=== PATIENT | male | born 1990 | race Caucasian/White ===

== ENCOUNTER 2019-05-05 14:35 | Emergency (ER) | payer OTHER ==
[2019-05-05 16:22] VITALS: BP 116/70
--- NOTE | 2019-05-05 16:49 | UC ---
General HPI - HPI Summary HPI Summary: L knee bent inward while on a trampoline. occured just [employer]. c/o pain to inner knee. limping, unable to walk. - History of Current Complaint Chief Complaint: UCLowerExtremity Stated Complaint: LT KNEE INJURY Time Seen by Provider: 05/05/19 16:36 Hx Obtained From: Patient Onset/Duration: Sudden Onset Timing: Constant Pain Intensity: 5 - Allergy/Home Medications Allergies/Adverse Reactions: Allergies Allergy/AdvReac Type Severity Reaction Status Date / Time amoxicillin Allergy Difficulty Verified 05/05/19 16:22 Breathing PMH/Surg Hx/FS Hx/Imm Hx Previously Healthy: Yes - Surgical History Surgical History: None Surgery Procedure, Year, and Place: shoulder - Family History Known Family History: Positive: Non-Contributory - Social History Occupation: Employed Full-time Alcohol Use: Occasionally Substance Use Type: None Smoking Status (MU): Never Smoked Tobacco Review of Systems All Other Systems Reviewed And Are Negative: No Constitutional: Negative: Fever Musculoskeletal: Positive: Edema - L knee. Negative: Decreased ROM Neurological: Negative: Weakness, Paresthesia, Numbness Physical Exam Triage Information Reviewed: Yes Appearance: Well-Appearing Vital Signs: Initial Vital Signs Temp 97.4 F 05/05/19 16:17 Pulse 52 05/05/19 16:17 Resp 16 05/05/19 16:17 BP 116/70 05/05/19 16:17 Pulse Ox 99 05/05/19 16:17 Vital Signs Reviewed: Yes Eyes: Positive: Conjunctiva Clear Respiratory: Positive: No respiratory distress Cardiovascular: Positive: RRR Musculoskeletal: Positive: Other: - LLE: hip on tender. L knee mildly swollen and tender over medial knee. Post xray, laxity and pain with MCL stressing. Rest of knee is without laxity. Passive and active ROM intact. Achilles, ankle and foot are non tender. gross s/v/m intact. Neurological: Positive: Alert Psychological: Positive: Age Appropriate Behavior Skin Exam: Normal Diagnostics - Radiology No standard instances Radiology Interpretation Completed By: Radiologist - IMPRESSION: #. Negative exam. Course/Dx - Diagnoses Provider Diagnosis: MCL sprain of left knee Discharge - Sign-Out/Discharge Documenting (check all that apply): Patient Departure All imaging exams completed and their final reports reviewed: Yes - Discharge Plan Condition: Stable Disposition: HOME Patient Education Materials: Knee Sprain (ED) Forms: *Work Release Referrals: Alber Tobias MD [Medical Doctor] - As Soon As Possible Additional Instructions: KNEE IMMOBILIZER AND CRUTCHES UNTIL CLEARED. - Billing Disposition and Condition Condition: STABLE Disposition: Home
== END 2019-05-05 17:49 | disposition home or self-care (01) ==
LOC: UCCORT 14:35
DX: S83.412A Sprain of medial collateral ligament of left knee, initial encounter (principal); X50.1XXA Overexertion from prolonged static or awkward postures, initial encounter; Y93.44 Activity, trampolining; Z88.0 Allergy status to penicillin
CPT/HCPCS: 99201; G0463